=== PATIENT | female | born 1965 ===

== ENCOUNTER 2021-06-17 13:07 | Outpatient (NON) | payer BC, SELFPAY ==
[2021-06-17 15:34] LABS: Crystals Synovial Fluid None Seen (None Seen)
[2021-06-17 18:10] LABS: Lymphocytes Synovial Fluid 5 %; Monocytes Synovial Fluid 5 %; Neutrophils Synovial Fluid 90 % (0-25)
[2021-06-17 19:34] LABS: Source Synovial Fluid Synovial fluid
[2021-06-17 19:35] LABS: Appearance Synovial Fluid Cloudy (Clear); Color Synovial Fluid Other (Colorless); Nucleated Cell Synovial Fluid 27400 /uL (0-200); RBC Synovial Fluid 10600 /uL (0-0)
== END 2021-06-17 13:08 | disposition home or self-care (01) ==
PROVIDERS: Visit Provider Physician Assistant Surgical
DX: M25.561 Pain in right knee (principal)
CPT/HCPCS: 85060; 87070; 87075; 87205; 89051; 89060